=== PATIENT | female | born 1990 | race Caucasian/White ===

== ENCOUNTER → 2019-12-29 08:57 | Outpatient (CLI) | payer OTHER, SELFPAY ==
[2019-12-29 10:05] LABS: Add Manual Diff / Slide Review NO; Basophils Absolute Auto 0 /uL (0-100); Basophils Percent Auto 0.5 % (0-2); Eosinophils Absolute Auto 100 /uL (0-450); Eosinophils Percent Auto 1.4 % (2-4); Hematocrit 40.6 % (36-46); Hemoglobin 13.9 g/dL (12.0-16.0); Lymphocytes Absolute Auto 2000 /uL (1100-4500); Lymphocytes Percent Auto 20.8 % (25-40); Mean Corpuscular HGB Conc 34.1 % (30-36); Mean Corpuscular Hemoglobin 31.5 PG (26-34); Mean Corpuscular Volume 92.3 fL (80-100); Monocytes Absolute Auto 800 /uL (0-900); Monocytes Percent Auto 7.8 % (3-14); Neutrophils Absolute Auto 6800 /uL (1500-7000); Neutrophils Percent Auto 69.5 % (50-75); Platelet Count 314 X10^3/uL (150-400); Red Cell Distribution Width 12.5 % (11.6-14.8); White Blood Cell Count 9.8 X10^3/uL (4.5-11.0)
[2019-12-29 10:12] LABS: Appearance Urine UA CLEAR; Bilirubin Urine UA NEGATIVE (NEGATIVE); Color Urine UA YELLOW; Glucose Urine UA NEGATIVE (Negative); Ketones Urine UA NEGATIVE (NEGATIVE); Leukocyte Esterase Urine UA NEGATIVE (NEGATIVE); Nitrite Urine UA NEGATIVE (Negative); Occult Blood Urine UA NEGATIVE (Negative); Protein Urine UA NEGATIVE (Negative); Specific Gravity Urine UA <=1.005 (1.000-1.035); Urobilinogen Urine UA 0.2 E.U./dL (0.2)
[2019-12-30 05:36] LABS: RPR Screen Non Reactive (Non Reactive)
[2019-12-30 10:58] LABS: Varicella IgG Antibody 1054 index (Immune >165)
[2019-12-30 17:18] LABS: Hepatitis B Surface Antigen NEGATIVE s/c (NEGATIVE); Rubella Antibody IgG 19.1 IU/mL (>15)
[2019-12-30 17:23] LABS: HIV 1 & 2 Ab/Ag 4th Gen Combo NEGATIVE (NEGATIVE); Hep C Virus Ab w/Reflex Quant NEGATIVE s/c (NEGATIVE)
== END ==
PROVIDERS: Family Provider Family Medicine; PCP Family Medicine; Referring Provider Specialist; Visit Provider Specialist
DX: Z34.81 Encounter for supervision of other normal pregnancy, first trimester (principal)
CPT/HCPCS: 36415; 80055; 81003; 86787; 86803; 86850; 86900; 86901; 87086; 87389

== ENCOUNTER 2020-01-11 14:25 | Emergency (ER) | payer OTHER, SELFPAY ==
[2020-01-11] VITALS (7 sets, daily range): BP systolic 110–124; BP diastolic 60–64; PULSE 78–94; RESP 15–18; TEMP 36.6; O2SAT 95–100; BMI 27.1
[2020-01-11 15:30] LABS: Add Manual Diff / Slide Review NO; Basophils Absolute Auto 100 /uL (0-100); Basophils Percent Auto 0.7 % (0-2); Eosinophils Absolute Auto 100 /uL (0-450); Eosinophils Percent Auto 1.3 % (2-4); Hemoglobin 13.4 g/dL (12.0-16.0); Lymphocytes Absolute Auto 3100 /uL (1100-4500); Lymphocytes Percent Auto 27.1 % (25-40); Mean Corpuscular HGB Conc 34.4 % (30-36); Mean Corpuscular Hemoglobin 31.3 PG (26-34); Monocytes Absolute Auto 600 /uL (0-900); Monocytes Percent Auto 5.3 % (3-14); Neutrophils Absolute Auto 7500 /uL (1500-7000); Neutrophils Percent Auto 65.6 % (50-75); Platelet Count 296 X10^3/uL (150-400); Red Blood Cell Count 4.29 X10^6/uL (4.0-5.2); White Blood Cell Count 11.4 X10^3/uL (4.5-11.0)
[2020-01-11 15:31] LABS: PTT Partial Thromboplastin Tim 30 SECONDS (26.4-36.2)
[2020-01-11 15:33] LABS: Alanine Aminotransferase 14 IU/L (<35); Albumin 4.2 g/dL (3.5-5.0); Albumin Globulin Ratio 1.3 (1.0-2.8); Alkaline Phosphatase 62 U/L (38-126); Aspartate Aminotransferase 19 IU/L (14-36); BUN Creatinine Ratio 11.4 (6-22); Bilirubin Total 0.8 mg/dL (0.2-1.3); Blood Urea Nitrogen 5 mg/dL (7-17); Calcium 9.3 mg/dL (8.4-10.2); Carbon Dioxide 24 mmol/L (22-32); Chloride 102 mmol/L (98-107); Estimated Glomerular Filt Rate > 60.0 mL/min (>60); Globulin 3.3 g/dL (1.7-4.1); Glucose 85 mg/dL (70-100); HEMOLYSIS < 15 (0-50); Potassium 3.3 mmol/L (3.4-5.1); Sodium 133 mmol/L (137-145); Total Protein 7.5 g/dL (6.3-8.2)
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
[2020-01-11] MEDS: SODIUM CHLORIDE 0.9% 1,000 ML 1000 ML IV (16:06)
--- NOTE | 2020-01-11 17:29 | PC.NURSE ---
Per Dr Phillips, no micro.
--- NOTE | 2020-01-11 17:32 | PC.NURSE ---
Patient is 11 weeks .
== END 2020-01-11 17:32 | disposition home or self-care (01) ==
PROVIDERS: Emergency Provider Emergency Medicine; Family Provider Family Medicine; PCP Family Medicine
DX: O26.891 Other specified pregnancy related conditions, first trimester (principal); O21.9 Vomiting of pregnancy, unspecified; Z3A.11 11 weeks gestation of pregnancy
CPT/HCPCS: 36415; 80053; 81003; 85025; 85610; 85730; 96360; 99281; 99284

== ENCOUNTER → 2020-01-26 10:30 | Oncology outpatient (ONC) | payer OTHER, SELFPAY ==
[2020-01-26 10:49] VITALS: BP 103/55; PULSE 79; RESP 16; TEMP 37.3; O2SAT 100
[2020-01-26] MEDS: LACTATED RINGERS 1,000 ML 1000 ML IV (11:41)
[2020-01-26] MEDS: ONDANSETRON 4 MG/2 ML INJ IV (12:18)
[2020-01-28] MEDS: MULTIVITAMIN 10 ML in LACTATED RINGERS 1,000 ML 1000 ML IV (10:13)
[2020-01-28 10:36] VITALS: BP 114/68; PULSE 90; RESP 16; TEMP 36.9; O2SAT 100
== END ==
PROVIDERS: Family Provider Family Medicine; PCP Family Medicine; Referring Provider Specialist; Visit Provider Specialist
DX: O21.0 Mild hyperemesis gravidarum (principal)
CPT/HCPCS: 96361; 96374; J2405

== ENCOUNTER → 2020-03-16 08:26 | Outpatient (CLI) | payer OTHER, SELFPAY ==
--- NOTE | 2020-03-16 08:27 | DI.US.S_ITS ---
PROCEDURE: US OB >= 14 WEEKS FETUS INDICATIONS: ANATOMY OUTSIDE/PRIOR DATING DATA: Last menstrual period (LMP): 10/25/19 . LMP-based estimated date of delivery (AGUSTÍN): 07/31/20 . First dating scan (date and location): 12/29/19, office of OB provider . Estimated date of delivery (AGUSTÍN) from first dating scan: 08/03/20 . TECHNIQUE: Real-time scanning was performed of the fetus, with image documentation and biometric measurements. Endovaginal scanning: Not performed COMPARISON: [facility], , OB <= 14 WEEKS FETUS, 12/29/2019, 8:21. [facility], , OB >= 14 WEEKS FETUS, 02/17/2020, 8:39. FINDINGS: General: A single living intrauterine gestation is present. Presentation: Breech. Placenta: Placental position is posterior , without previa. Amniotic fluid index: 14.7 cm, normal range is 5-24 cm. heart rate: 143 beats per minute. Maternal cervical canal: 3.8 cm long. Normal lower limit is 2.5 cm. Moderate right maternal hydronephrosis. biometrics: Biparietal diameter: 4.7 cm, 20 weeks, two days Head circumference: 17.9 cm, 20 weeks, two days Abdominal circumference: 15.2 cm, 20 weeks, three days Femur length: 3.5 cm, 21 weeks, 0 days Estimated gestational age from initial scan: 20 weeks, 0 days. Composite gestational age from present scan: 20 weeks, four days Estimated weight and percentile: 369 g, 82 percentile Anatomic survey: Neuro: Ventricles are non-dilated at less than 10 mm. Cisterna magna is normal at 3-11 mm. Cerebellum is normal in size and morphology. Nuchal skin fold: Normal at less than 6 mm between 14-21 weeks gestational age. Face: Nose and lips, facial profile are normal. Spine: No evidence for spina bifida. Heart: 4-chambered heart is present, with normal ventricular outflow tracts. Diaphragm: Diaphragm is intact. Stomach: Left-sided stomach is present. Kidneys: No hydronephrosis. Normal is less than 5 mm in 2nd trimester, less than 7 mm in 3rd trimester. Cord: 3-vessel cord has orthotopic insertion. Bladder: Normal in size. Extremities: All 4 extremities identified. IMPRESSION: 1. Single living intrauterine with appropriate growth since the prior study. 2. Normal anatomy. 3. Moderate maternal right hydronephrosis. Dictated by: Kiki Lancaster M.D. on 03/16/2020 at 10:13 Approved by: Kiki Lancaster M.D. on 03/16/2020 at 10:19
== END ==
PROVIDERS: Family Provider Family Medicine; PCP Family Medicine; Referring Provider Family Medicine; Visit Provider Specialist
DX: Z34.02 Encounter for supervision of normal first pregnancy, second trimester (principal); Z3A.19 19 weeks gestation of pregnancy
CPT/HCPCS: 76811

== ENCOUNTER → 2020-04-12 07:51 | Outpatient (CLI) | payer OTHER, SELFPAY ==
[2020-04-12 10:48] LABS: Hematocrit 34.9 % (36-46)
[2020-04-12 11:09] LABS: GTT (PREG) 1 Hour PP 50gm Dose 119 mg/dL (76-139)
== END ==
PROVIDERS: Family Provider Family Medicine; PCP Family Medicine; Referring Provider Specialist; Visit Provider Specialist
DX: Z34.02 Encounter for supervision of normal first pregnancy, second trimester (principal)
CPT/HCPCS: 36415; 82950; 85014; 85018

== ENCOUNTER → 2020-06-07 09:04 | Outpatient (CLI) | payer OTHER, SELFPAY | PROVIDERS: Family Provider Family Medicine; PCP Family Medicine; Visit Provider Specialist | DX: Z34.82 Encounter for supervision of other normal pregnancy, second trimester (principal); Z3A.32 32 weeks gestation of pregnancy | CPT/HCPCS: 87077; 87086 ==

== ENCOUNTER → 2020-07-05 09:18 | Outpatient (CLI) | payer OTHER, SELFPAY ==
[2020-07-06 11:21] LABS: Strep Grp B PCR NEG for Grp B Strep
== END ==
PROVIDERS: Family Provider Family Medicine; Visit Provider Specialist
DX: Z34.03 Encounter for supervision of normal first pregnancy, third trimester (principal); Z3A.36 36 weeks gestation of pregnancy
CPT/HCPCS: 87653

== ENCOUNTER 2020-07-25 18:54 | Observation (INO) | payer OTHER, SELFPAY ==
[2020-07-25] MEDS: miSOPROStoL 25 MCG TABLET VAG (19:39)
[2020-07-25 20:19] LABS: COVID19 - ADMIT (NP swab/PCR) Negative (Negative)
[2020-07-25 21:00] LABS: Add Manual Diff / Slide Review NO; Basophils Absolute Auto 100 /uL (0-100); Basophils Percent Auto 0.7 % (0-2); Eosinophils Absolute Auto 200 /uL (0-450); Eosinophils Percent Auto 1.5 % (2-4); Hematocrit 37.3 % (36-46); Hemoglobin 12.6 g/dL (12.0-16.0); Lymphocytes Absolute Auto 2600 /uL (1100-4500); Mean Corpuscular HGB Conc 33.6 % (30-36); Mean Corpuscular Hemoglobin 30.4 PG (26-34); Mean Corpuscular Volume 90.5 fL (80-100); Monocytes Absolute Auto 1000 /uL (0-900); Monocytes Percent Auto 8.3 % (3-14); Neutrophils Absolute Auto 8000 /uL (1500-7000); Neutrophils Percent Auto 67.5 % (50-75); Platelet Count 280 X10^3/uL (150-400); Red Blood Cell Count 4.12 X10^6/uL (4.0-5.2); Red Cell Distribution Width 13.8 % (11.6-14.8); White Blood Cell Count 11.8 X10^3/uL (4.5-11.0)
[2020-07-25 21:11] VITALS: BP 113/70
[2020-07-25] MEDS: CITRIC ACID/SODIUM CITRATE 15 ML SOLUTION 30 ML PO (21:17)
[2020-07-26] MEDS: miSOPROStoL 25 MCG TABLET VAG (02:29)
[2020-07-26] MEDS: LACTATED RINGERS 1,000 ML 100 ML IV ×2 (07:06→12:10)
[2020-07-26] MEDS: ONDANSETRON 4 MG/2 ML INJ IV (07:06)
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
[2020-07-26] MEDS: OXYTOCIN PREMIX 30 UNIT/500 ML PLAST..BAG IV (08:39)
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
--- NOTE | 2020-07-30 16:49 | P.DS_ITS ---
Discharge Providers Provider Date of admission: 07/25/20 18:54 Discharge Date: 07/30/20 Primary care physician: Doctor Roz MD Consults: 07/25/20 19:03 Consult to Anesthesiology Urgent Comment: Consulting Provider: Anesthesiologist Reason for consultation: Epidural Has provider been notified: No Discharge provider: Liberty Randolph MD Summary Hospital Course Date Patient Seen: 07/30/20 Time Patient Seen: 09:15 Diagnoses: 39-,4/7 weeks gestation Severe anxiety Induction of labor with Pitocin intolerance of labor Primary low-transverse section Hospital Course: Patient is a 29-year-old 1 para 1 who presented on July 28, 2020 for a 2nd attempt at induction of labor. She was started on Pitocin. There were deep variable decelerations with contractions. She underwent a primary low- transverse section where there was found to be a cord across the top of the baby's head as well as around the neck. Her course was unremarkable. She is tolerating a diet. Pain well controlled. going okay. She is ambulating without assistance. She has been able to void without the catheter. Peripartum Data Infant Delivery Method: Section Laceration Description: None Episiotomy description: None Procedures: Pitocin induction of labor Primary low-transverse section complications: none 1: Gender: Female Disposition of : home Status at Discharge Cognitive/behavioral status at discharge: oriented Functional status at discharge: independent ambulation Overall status at discharge: patient is progressing back to baseline Time Spent with Patient Time attestation: Total time spent providing and/or coordinating discharge services: Time spent: Less than 30 minutes Objective Labs Result Diagrams: 07/25/20 20:35 Exam Vital Signs (past 8 hours): Generally: Patient sitting up in bed, no acute distress Lungs: Clear to auscultation bilaterally Cardiovascular: Regular rate and rhythm Abdomen: Soft, appropriately tender. Fundus: Firm at U -1 Incision: Clean dry and intact with Aquacel dressing Extremities: No edema, negative Homans Discharge Plan Discharge Plan Patient Disposition: Home Discharge orders & Medications Prescriptions: Continued prenat.vits,andre,rzr-cxei-rpqjn Tablet 1 tab PO DAILY RF: 0 albuterol sulfate [Ventolin HFA] 90 MCG/PUFF HFA aerosol inhaler 2 puff INH Q4HP PRN (Reason: Adequate Ventilation) RF: 0 sertraline 50 mg tablet 75 mg PO DAILY RF: 0 Spacer: Inhaler Spacer Device 1 ea PRN PRN (Reason: Adequate Ventilation) RF: 0 No Action oxycodone 5 mg tablet 5 mg PO Q4H PRN (Reason: pain) Qty: 30 RF: 0 Follow up/Referrals: Lexus Meyer MD [Physician] - 07/27/20 4:30 pm Doctor Courtney MD [Primary Care Provider] - Diet/Activity/Treatments Diet: Regular Discharge Data Primary Care Provider: RozDoctor Attending Provider: Lexus Meyer
== END 2020-07-26 18:00 | disposition home or self-care (01) ==
PROVIDERS: Admitting Provider Specialist; Family Provider Family Medicine; Referring Provider Specialist; Visit Provider Specialist
DX: O99.343 Other mental disorders complicating pregnancy, third trimester (principal); F41.9 Anxiety disorder, unspecified; O99.891 Other specified diseases and conditions complicating pregnancy; R06.02 Shortness of breath; O61.0 Failed medical induction of labor; Z3A.39 39 weeks gestation of pregnancy; Z20.822 Contact with and (suspected) exposure to COVID-19
CPT/HCPCS: 36415; 59025; 59050; 59200; 85025; 86850; 86900; 86901; 87635; 96360; C9803; G0378; G0379; J2405; J2590

== ENCOUNTER 2020-07-28 07:36 | Inpatient (IN) | payer OTHER, SELFPAY ==
[2020-07-28] MEDS: miSOPROStoL 25 MCG TABLET VAG (08:19)
[2020-07-28 09:12] LABS: Add Manual Diff / Slide Review NO; Basophils Absolute Auto 100 /uL (0-100); Basophils Percent Auto 0.8 % (0-2); Eosinophils Absolute Auto 200 /uL (0-450); Eosinophils Percent Auto 1.5 % (2-4); Hematocrit 37.6 % (36-46); Hemoglobin 12.8 g/dL (12.0-16.0); Lymphocytes Absolute Auto 2700 /uL (1100-4500); Lymphocytes Percent Auto 22.6 % (25-40); Mean Corpuscular HGB Conc 34.1 % (30-36); Mean Corpuscular Hemoglobin 30.8 PG (26-34); Mean Corpuscular Volume 90.4 fL (80-100); Monocytes Absolute Auto 1100 /uL (0-900); Monocytes Percent Auto 9.1 % (3-14); Neutrophils Absolute Auto 7900 /uL (1500-7000); Platelet Count 273 X10^3/uL (150-400); Red Blood Cell Count 4.16 X10^6/uL (4.0-5.2); Red Cell Distribution Width 13.7 % (11.6-14.8); White Blood Cell Count 11.9 X10^3/uL (4.5-11.0)
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
[2020-07-28 12:13] VITALS: BP 116/85
[2020-07-28] MEDS: DINOPROSTONE VAG (CERVIDIL) 10 MG VAG (13:10)
[2020-07-28] MEDS: LACTATED RINGERS 1,000 ML 100 ML IV ×3 (14:30→16:25)
--- NOTE | 2020-07-28 14:38 | PM.PREOP ---
Pre-operative Note COVID-19 COVID-19 status: Negative Result date/Date tested (Pos, Neg/Pending): 07/26/20 Interval Note History & Physical reviewed/Exam performed by Physician: Yes Changes to H&P: Yes H&P completed within 30 days and has changed as indicated here:: intolerance of labor
[2020-07-28] MEDS: CEFAZOLIN 1 GM VIAL 2 GM IV (15:12)
--- NOTE | 2020-07-28 15:55 | SUR.OPER ---
Supine on Padded OR bed, head on pillow, safety belt at thigh, arms secured on padded arm boards at <90 degrees abduction. Bump under right buttock. Legs uncrossed with pillow under knees, gel pad to heels, tape over blanket to lower legs.
--- NOTE | 2020-07-28 15:58 | SUR.OPER ---
FHTS 125 TOB at 15:56 alive girl Cord blood x 2 and placenta given to OB nurse
[2020-07-28 16:29] LABS: Base Excess Cord Arterial Bld -1 (-9.0-2.2); Cord Venous Blood PCO2 45.9 (27-56); Cord Venous Blood PO2 22 (17-41); Cord Venous Blood pH 7.339 (7.25-7.45); HCO3 Cord Arterial Blood 26.4 (17-27); HCO3 Cord Venous Blood 24.7 (12-28); O2 Saturation Cord Venous Bld 32 (14-75); Oxygen Sat Cord Arterial Blood 9 (5-59); PO2 Cord Arterial Blood 12 (6-30); pH Cord Arterial Blood 7.22 (7.14-7.38)
[2020-07-28 16:34] VITALS: BP 100/78; PULSE 57; RESP 16; O2SAT 98
[2020-07-28 16:40] VITALS: BP 121/74; PULSE 57; RESP 16; O2SAT 98
--- NOTE | 2020-07-28 17:09 | PM.OBCS.1 ---
Operative Date/Time/Diagnoses Date of procedure: 07/28/20 Time of procedure: 17:10 Pre-op diagnosis: intolerance of labor Post-op diagnosis: same Procedure & Clinicians Procedure: Primary low-transverse section Same procedure as scheduled: Yes Indications: Fetus with prolonged decelerations with vertical sitting or standing Surgeon: Lexus Meyer Olive Packer: Liberty Randolph Anesthesia Type: Spinal Operative Notes Findings: Normal tubes, ovaries, uterus. Viable female weighing 8 lb 1 oz. nuchal cord, loop of umbilical cord next to the head likely getting compressed causing the decelerations Closure Type: primary Specimen(s): cord pH Intraoperative meds administered: Ketorolac and Pitocin Applied: Catheter (Brennan) Estimated Blood Loss (mL): 300 Blood products transfused: none Procedure in detail: The patient was brought to the operating room where she underwent a spinal for anesthesia. She was placed in a supine position with a left lateral tilt. A Brennan catheter was placed. Pulsatile stockings were placed and functional throughout the case. 2 g of Ancef were given IV prior to the incision. Warming was in place. The patient was prepped and draped in usual sterile fashion. A low transverse incision was made with a scalpel and the incision was carried down to the fascial layer which was incised transversely with scissors. The wet process assistant head miller did her side of the incision. The midline attachments are superiorly and inferiorly. Some bleeding was controlled Bovie. The rectus muscles were in the midline and the peritoneal incision was made with no damage to internal structures. The peritoneum was incised and superiorly and inferiorly. The incision was stretched with the surgeon and wet process assistant head miller placing traction. Bladder blade was placed and a bladder flap was developed and the bladder held away from the lower uterine segment. An incision was made in the uterus with the scalpel and the incision was extended with stretching. The head was elevated out of the abdomen and with fundal pressure by the wet process assistant head miller the baby was delivered. The infant was bulb suctioned for clear fluid and handed off to the warmer. Cord blood and cord pH was collected. The placenta delivered spontaneously with traction. The uterus was cleaned with clean laps. The uterine incision was closed in 2 layers of 0 chromic suture the first a running locking layer the second an imbricating layer. The wet process assistant head miller was helping to expose the incision. The bladder peritoneum was repaired with 2-0 Vicryl suture. The gutters were cleaned of any remaining fluids and ovaries and tubes were observed to be normal. Adequate hemostasis was noted. The perineum was closed with 2-0 Vicryl suture. The fascia layer was closed with 0 Vicryl suture with 2 stitches. The wet process assistant head miller repairing half the incision with helping to retract and expose the incision for the other half. The incision was irrigated and adequate hemostasis noted. The incision was closed with interrupted 3-0 Vicryl sutures and then a subcuticular stitch of 4-0 Vicryl suture. Steri-Strips were placed. The uterus was massaged to remove any clots. The patient went to recovery room in good condition. Counts of instruments and sponges were correct. Dr. Randolph was present throughout the case to assist with retraction, fundal pressure to deliver the , and suturing half the fascia. Complications: none Baby 1: Infant Gender: Female Presentation: vertex Position: Left Occiput Transverse Placental Delivery Description: Expressed Cord Vessel Description: 3 Vessels score (1 min): 8 score (5 min): 9 weight: 8 lb 1 oz Post-operative Condition: stable Disposition: other ( Center) Aftercare: routine postop
[2020-07-28 17:30] VITALS: PULSE 60; RESP 16; O2SAT 99
[2020-07-28] MEDS: SERTRALINE 50 MG TABLET 75 MG PO (21:39)
[2020-07-29] MEDS: KETOROLAC 30 MG/ML VIAL IV ×3 (00:29→13:07)
[2020-07-29] MEDS: ACETAMINOPHEN 325 MG TABLET 650 MG PO ×3 (00:30→13:07)
[2020-07-29] MEDS: OXYCODONE IR 5 MG TABLET PO ×2 (00:30→04:35)
[2020-07-29] MEDS: LACTATED RINGERS 1,000 ML 100 ML IV (02:09)
[2020-07-29] MEDS: LANOLIN OINT 7 GM 1 APPLIC TOP ×2 (04:35→14:31)
[2020-07-29] MEDS: OXYCODONE IR 10 MG TABLET PO ×4 (06:48→20:33)
[2020-07-29] MEDS: PANTOPRAZOLE DR 40 MG TABLET PO (06:49)
[2020-07-29 07:49] LABS: Add Manual Diff / Slide Review NO; Basophils Absolute Auto 100 /uL (0-100); Basophils Percent Auto 0.6 % (0-2); Eosinophils Absolute Auto 200 /uL (0-450); Eosinophils Percent Auto 1.9 % (2-4); Hematocrit 30.4 % (36-46); Hemoglobin 10.4 g/dL (12.0-16.0); Lymphocytes Absolute Auto 3100 /uL (1100-4500); Lymphocytes Percent Auto 28.2 % (25-40); Mean Corpuscular HGB Conc 34.1 % (30-36); Mean Corpuscular Hemoglobin 30.7 PG (26-34); Monocytes Absolute Auto 1000 /uL (0-900); Monocytes Percent Auto 9.1 % (3-14); Neutrophils Absolute Auto 6600 /uL (1500-7000); Neutrophils Percent Auto 60.2 % (50-75); Platelet Count 227 X10^3/uL (150-400); Red Blood Cell Count 3.37 X10^6/uL (4.0-5.2); Red Cell Distribution Width 13.5 % (11.6-14.8)
[2020-07-29] MEDS: DOCUSATE 250 MG CAPSULE PO (10:59)
--- NOTE | 2020-07-29 11:34 | PM.OBPN.1 ---
Subjective - OB Subjective Patient comments: no complaints, pain well controlled, tolerating diet and flatus present baby status: doing well [place] feeding status: exclusively breast feeding Date Patient Seen: 07/29/20 Time Patient Seen: 11:34 Interval history: Patient is a 29-year-old 1 para 1 postop day # 1 status post primary low-transverse section for intolerance of labor. She is tolerating a diet. She has showered. She has voided without the catheter. Pain is well controlled. She is ambulating without assistance. Exam Vital Signs (past 8 hours): Oxygen Delivery Method Room Air Narrative Exam Narrative: Generally: Patient is sitting up in bed, no acute distress Lungs: Clear to auscultation bilaterally Cardiovascular: Regular rate and rhythm Fundus: Firm at U Incision: Clean dry and intact with Aquacel dressing Extremities: Trace edema, negative Homans Objective Labs Result Diagrams: 07/29/20 07:42 Labs: Laboratory Results - last 24 hr 07/28/20 07/29/20 16:09 07:42 WBC 11.0 RBC 3.37 L Hgb 10.4 L Hct 30.4 L MCV 90.0 MCH 30.7 MCHC 34.1 RDW 13.5 Plt Count 227 Neut % (Auto) 60.2 Lymph % (Auto) 28.2 [place] % (Auto) 9.1 Eos % (Auto) 1.9 L Baso % (Auto) 0.6 Neut # (Auto) 6600 Lymph # (Auto) 3100 [place] # (Auto) 1000 H Eos # (Auto) 200 Baso # (Auto) 100 Cord ABG pH 7.22 Cord ABG pCO2 65.0 Cord ABG pO2 12 Cord ABG HCO3 26.4 Cord ABG Base Excess -1 Cord ABG O2 Sat 9 Cord VBG pH 7.339 Cord VBG pCO2 45.9 Cord VBG pO2 22 Cord VBG HCO3 24.7 Cord VBG Base Excess -1.00 Cord VBG O2 Sat 32 Assessment & Plan Plan day: 1 plan OB: routine postop care Time Spent With Patient Time: Total time spent is greater than 50% in coordination of care (as documented) at patient's floor/unit and/or counseling patient: Time with patient: less than 15 minutes
[2020-07-29] MEDS: SERTRALINE 50 MG TABLET 75 MG PO (21:00)
[2020-07-29] MEDS: MORPHINE 2 MG/ML INJ IV (22:30)
[2020-07-30] MEDS: OXYCODONE IR 10 MG TABLET PO ×2 (00:30→06:52)
[2020-07-30] MEDS: ACETAMINOPHEN 325 MG TABLET 650 MG PO ×2 (00:57→06:53)
[2020-07-30] MEDS: IBUPROFEN 600 MG TABLET PO (06:53)
[2020-07-30 08:00] VITALS: BP 121/74; PULSE 60; RESP 16; TEMP 36.7
[2020-07-30 09:44] VITALS: RESP 18; O2SAT 98
--- NOTE | 2020-08-02 08:18 | P.DS_ITS ---
Discharge Providers Provider Date of admission: 07/28/20 07:36 Discharge Date: 07/30/20 Consults: 07/28/20 17:30 Consult to Radiation Control Technician Routine Comment: Discharge provider: Liberty Randolph MD Summary Hospital Course Date Patient Seen: 07/30/20 Time Patient Seen: 10:30 Diagnoses: Patient is 8 29-year-old 1 para 1 who presented for induction of labor at 39-,4/7 weeks gestation due to severe anxiety. Hospital Course: She was admitted on July 28, 2020 and started on Pitocin. There was intolerance of labor with deep variable decelerations with contractions. She underwent a primary low-transverse section. She was found to have a nuchal cord and a cord across the top of the baby's head. Her course was unremarkable. She is discharged home on postop day # 2. Peripartum Data Infant Delivery Method: Emergency Section Laceration Description: None Episiotomy description: None Procedures: Pitocin induction of labor Primary low-transverse section complications: none 1: Gender: Female Disposition of : home Status at Discharge Cognitive/behavioral status at discharge: oriented Functional status at discharge: independent ambulation Overall status at discharge: patient is progressing back to baseline Time Spent with Patient Time attestation: Total time spent providing and/or coordinating discharge services: Time spent: Less than 30 minutes Objective Labs Result Diagrams: 07/29/20 07:42 Exam Vital Signs (past 8 hours): Oxygen Delivery Method Room Air Narrative Exam Narrative: Generally: Patient is sitting up in bed, nursing , no acute distress Lungs: Clear to auscultation bilaterally Cardiovascular: Regular rate and rhythm Abdomen: Soft Fundus: Firm at U -1 Incision: Clean dry and intact with Aquacel dressing Extremities: Negative Homans, no edema Discharge Plan Discharge Plan Patient Disposition: Home Provider Discharge Comment: Call with fever, chills, redness or drainage around the incision, or bleeding vaginally more than a pad in an hour Ibuprofen 600 mg every 6 hours as needed Tylenol 650 mg every 6 hours as needed Push fluids Keep legs elevated Stool softener as needed Discharge orders & Medications Prescriptions: New oxycodone 5 mg tablet 5 mg PO Q4H PRN (Reason: pain) Qty: 30 RF: 0 Continued prenat.vits,andre,iez-uhzg-aoipz Tablet 1 tab PO DAILY RF: 0 albuterol sulfate [Ventolin HFA] 90 MCG/PUFF HFA aerosol inhaler 2 puff INH Q4HP PRN (Reason: Adequate Ventilation) RF: 0 sertraline 50 mg tablet 75 mg PO DAILY RF: 0 Spacer: Inhaler Spacer Device 1 ea PRN PRN (Reason: Adequate Ventilation) RF: 0 Discontinued pcdbjqtzwj-kigwtukrwzyue-xtkm 50-325-40 mg capsule 1 cap PO Q4-6H PRN (Reason: headache) Qty: 30 RF: 0 oxycodone-acetaminophen 5-325 mg tablet 1 tab PO Q4-6H PRN (Reason: pain) Qty: 10 RF: 0 omeprazole 40 mg capsule,delayed release(DR/EC) 40 mg PO DAILY Qty: 10 RF: 0 Follow up/Referrals: Lexus Meyer MD [Physician] - 2 Weeks (Our office will call tomorrow to schedule a 2 week post op check with Dr. Meyer) Diet/Activity/Treatments Diet: Regular Activity: No heavy lifting Nothing in the vagina Skin/Wound/Dressing Care Report to your healthcare provider any signs of infection, such as:: chills, fever, increased pain, unusual drainage and unusual redness Dressing: Remove outer brown dressing in one week Leave steri strips in place Visit Report/Discharge Packet Instructions: DI for , DI for Prescription Opioid Use
== END 2020-07-30 10:45 | disposition home or self-care (01) | DRG 788 ==
PROVIDERS: Admitting Provider Specialist; Family Provider Family Medicine; Referring Provider Specialist; Visit Provider Specialist
PROC: 10D00Z1 Extraction of Products of Conception, Low, Open Approach (ICD-10-PCS; CPT 59514; principal; 2020-07-28 14:30)
DX: O76 Abnormality in fetal heart rate and rhythm complicating labor and delivery (principal); O99.891 Other specified diseases and conditions complicating pregnancy; F41.9 Anxiety disorder, unspecified; R06.02 Shortness of breath; O69.1XX0 Labor and delivery complicated by cord around neck, with compression, not applicable or unspecified; Z3A.39 39 weeks gestation of pregnancy; Z37.0 Single live birth; O61.0 Failed medical induction of labor
CPT/HCPCS: 36415; 59050; 59200; 59510; 59514; 82803; 85025; 86850; 86900; 86901; 94760; 94762; G0379; J0690; J1885; J2270; J2274; J2405; J2590